=== PATIENT | female | born 1985 | race Caucasian/White ===

== ENCOUNTER 2019-03-18 08:35 | Inpatient (IN) ==
[2019-03-18] MEDS ORDERED: OXYTOCIN 30 UNITS/500 ML BAG IV PRN ×2 (09:31→17:35)
[2019-03-18] MEDS ORDERED: LACTATED RINGER'S 1,000 ML IV PRN (09:31)
[2019-03-18] MEDS ORDERED: PENICILLIN G POTASSIUM 6 MU in DEXTROSE 5% 250 ML IV STA (09:54)
[2019-03-18] MEDS ORDERED: PENICILLIN G POTASSIUM 3 MU in DEXTROSE 5% 100 ML IV PRN (10:00)
[2019-03-18 10:14] LABS: Hematocrit (blood only) 43.7 % (37-47); Hemoglobin 14.9 g/dL (12.0-16.0); Mean Corpuscular Hemoglobin 31.8 pg (25-34); Mean Corpuscular Volume 93.2 fL (80-100); Mean Platelet Volume 9.8 fL (7.4-10.4); Platelet Count 301 K/uL (130-400); RDW Standard Deviation 43.9 fL (36.4-46.3); Red Blood Count 4.69 M/uL (4.2-5.4); White Blood Count 10.81 K/uL (4.8-10.8)
[2019-03-18 10:18] LABS: Mean Corpuscular Hgb Conc 34.1 g/dL (32-36)
[2019-03-18] MEDS ORDERED: miSOPROStoL 50 MCG TAB PO SCH (12:00)
[2019-03-18] MEDS ORDERED: fentaNYL citrate 100 MCG/2 ML VIAL ONE (14:44)
[2019-03-18] MEDS ORDERED: fentaNYL 2MCG/ML ROPIV 1.25MG/ML 100 ML BAG EPI ONE (14:44)
[2019-03-18] MEDS ORDERED: ePHEDrine sulfate 50 MG/ML AMP ONE (14:44)
[2019-03-18] MEDS ORDERED: BUPIVACAINE 0.25% 30 ML VIAL ONE (14:44)
--- NOTE | 2019-03-18 15:15 | Anesthesiology Consultation ---
Date of Service March 18, 2019 Assessment & Plan (1) Encounter for pre-operative examination: Chart Review Chart Review: Acceptable Risk for Labor Epidural Consults Requested none ASA ASA2 Proposed Anesthesia Anesthesia Type: Labor Epidural Risk / Benefits Reviewed With: PT / POA / Parent / Guardian, Accepts Plan and Informed Consent Obtained History Height/Weight Height: 5 ft 8 in Weight: 75.75 kg Allergies Allergy/AdvReac Type Severity Reaction Status Date / Time prednisone Allergy Intermediate mental Verified 03/22/15 20:03 issues Sulfa (Sulfonamide Allergy Mild RASH Verified 03/22/15 20:03 Antibiotics) DECONGESTANTS Allergy Unknown rash Uncoded 12/19/14 08:41 Medications Home Medications Medication Instructions Recorded Confirmed Last Taken vit-iron fum-folic ac 1 tab PO DAILY 03/18/19 03/18/19 03/17/19 12:00 [ Vitamin] Active Medications Generic Name Dose Route Start Last Admin Trade Name Freq PRN Reason Stop Dose Admin Lactated Ringer's 1,000 mls @ 125 mls/hr 03/18/19 09:31 03/18/19 15:00 Lr IV 03/20/19 09:30 125 mls/hr .Q8H PRN Infusion L&D Protocol Protocol Penicillin G Potassium 3 mu/ 106 mls @ 100 mls/hr 03/18/19 10:00 03/18/19 15:00 Dextrose IV 03/28/19 09:59 100 mls/hr Q4H PRN Infusion until delivery Protocol Misoprostol 50 mcg 03/18/19 12:00 03/18/19 12:21 Cytotec PO 03/18/19 23:59 50 mcg ONCE MOY Administration Exercise / Class Metabolic Activity II 4-5 Yardwork/Stairs/Walk up hill Past Surgical History Surgical History (Updated 03/18/19 @ 15:15 by Abraham Alexandre DO) S/P partial thyroidectomy Past Anesthesia History No Hx of Anesthesia Complications and No Family Hx of Anesthesia Complications History of PONV No Hx of PONV and No Hx of Motion Sickness Social History Smoking Status: Never smoker Do You Dip or Chew Tobacco: No Hx Alcohol Use: No Hx Substance Use: No Physical Exam Vital Signs Last Vital Signs Temp 98.1 F 03/18/19 15:00 Pulse 68 03/18/19 15:00 Resp 18 03/18/19 15:00 BP 146/69 H 12/15/19 15:00 ENMT Mouth: no dentition abnormality Thyromental Distance: > or= 3.5 Finger Breadths Mallampati Class: II Neck normal visual inspection Respiratory normal respiratory effort Auscultation: lungs clear to auscultation bilaterally Cardiovascular Rate/Rhythm: regular rate and regular rhythm Testing Laboratory Results 03/18/19 09:55
[2019-03-18] MEDS ORDERED: NALOXONE HCL 1 MG in SODIUM CHLORIDE 0.9% 1000ML 1,000 ML IV PRN (15:37)
[2019-03-18] MEDS ORDERED: ePHEDrine sulfate 50 MG/ML AMP IV PRN (15:37)
[2019-03-18] MEDS ORDERED: ONDANSETRON INJ 2 MG/ML 2 ML VIAL IV PRN (15:37)
[2019-03-18] MEDS ORDERED: NALOXONE HCL 0.4 MG/1 ML VIAL/CARP IV PRN (15:37)
[2019-03-18] MEDS ORDERED: DiphenhydrAMINE HCL 50 MG/ML VIAL IV PRN (15:37)
[2019-03-18] MEDS ORDERED: NALBUPHINE HCL INJ 10 MG/ML AMP IV PRN (15:37)
[2019-03-18] MEDS ORDERED: fentaNYL 2MCG/ML ROPIV 1.25MG/ML 100 ML BAG EPI PRN (15:37)
[2019-03-18] MEDS ORDERED: SUPERCREAM 0.870% 15 GM JAR EXT PRN (17:35)
[2019-03-18] MEDS ORDERED: ACETAMINOPHEN W/CODEINE #3 1 TAB PO PRN (17:35)
[2019-03-18] MEDS ORDERED: BENZOCAINE 20% AER SPR 82.5 GM CAN EXT PRN (17:35)
[2019-03-18] MEDS ORDERED: OXYCODONE/ACETAMINOPHEN 5mg/325mg TAB PO PRN (17:35)
[2019-03-18] MEDS ORDERED: bisacodyL 10 MG SUPP PR PRN (17:35)
[2019-03-18] MEDS ORDERED: HYDROCORTISONE ACETATE 25 MG SUPP PR PRN (17:35)
[2019-03-18] MEDS ORDERED: DIPHTHERIA/TETANUS/PERTUSSIS 0.5 ML SYR/VIAL IM ONE (17:35)
[2019-03-18] MEDS ORDERED: ACETAMINOPHEN 325 MG TAB PO PRN (17:35)
--- NOTE | 2019-03-18 17:43 | Anesthesia Procedure Note ---
Date of Service March 18, 2019 Anesthesia Post Epidural Note Vital Signs Vital Signs: Temp Pulse Resp BP Pulse Ox 97.7 F 68 18 126/63 98 03/18/19 17:35 03/18/19 17:35 03/18/19 17:35 03/18/19 17:35 03/18/19 17:24 Pain Intensity Bilateral Abdomen: Pain Intensity: 3 Notes Mental Status: alert / awake / arousable and participated in evaluation Nausea / Vomiting: adequately controlled Pain: adequately controlled Airway Patency, RR, SpO2: stable & adequate BP & HR: stable & adequate Hydration State: stable & adequate Neuraxial Anesthesia: was administered and sensory block is resolving Anesthetic Complications: no major complications apparent and Pt Satisfied with anesthetic care Epidural: Removed without complications and With tip intact
--- NOTE | 2019-03-18 17:57 | Delivery Summary ---
DATE OF OPERATION: 03/18/2019 This is a dictation of a spontaneous vaginal delivery. The patient is a 2, para 2, blood type is O positive. She was admitted at 36 weeks and 1 day with sara rupture of membranes. Nitrazine positive. She was not having any contractions. She was given 1 dose of Cytotec 50 mcg and she went into labor. She eventually had an epidural anesthesia when she was about 6 cm. She went to full dilatation, delivered a live infant via direct occiput anterior position over an intact perineum. Cut a small episiotomy prior to delivery, delivered the head, suctioned the infant through the mouth and the nose and delivered the body. Cord was clamped, cut by the father. Cord blood was taken. With IV Pitocin running, the placenta was removed intact. There was noted to be a midline clitoral laceration, which was bleeding, a lot of venous bleeding. We used 3 interrupted 3-0 chromic gut sutures to approximate the edges and control the bleeding. Then, there was a first-degree laceration of the perineum and this was repaired by approximating the vaginal mucosa beyond the hymenal ring doing a deep bulbocavernosus suture to bring the bulbocavernosus bodies together and then doing a running subcuticular sutures to approximate the perineal skin edges. Following this, hemostasis was good. Estimated blood loss was 200 mL. Apgars deferred to the nurses. The patient tolerated the procedure well. I attest to the content of the Intraoperative Record and any orders documented therein. Any exception s are noted below.
[2019-03-18] MEDS: DOCUSATE SODIUM 100 MG CAP PO SCH (21:25)
[2019-03-18] MEDS: IBUPROFEN 600 MG TAB PO PRN (23:26)
[2019-03-19 07:01] LABS: Hematocrit (blood only) 38.9 % (37-47); Hemoglobin 13.1 g/dL (12.0-16.0); Mean Corpuscular Hemoglobin 31.6 pg (25-34); Mean Corpuscular Hgb Conc 33.7 g/dL (32-36); Mean Corpuscular Volume 93.7 fL (80-100); Platelet Count 271 K/uL (130-400); RDW Standard Deviation 44.3 fL (36.4-46.3); Red Blood Count 4.15 M/uL (4.2-5.4)
[2019-03-19] MEDS: DOCUSATE SODIUM 100 MG CAP PO SCH ×2 (08:00→19:46)
[2019-03-19] MEDS: FERROUS SULFATE 325 MG TAB PO SCH (08:00)
[2019-03-19] MEDS: PRENATAL VITAMIN 1 TAB PO SCH (08:00)
[2019-03-19] MEDS: IBUPROFEN 600 MG TAB PO PRN ×2 (08:00→20:47)
--- NOTE | 2019-03-19 10:22 | Obstetrical Progress Note ---
Date of Service March 19, 2019 Assessment & Plan (1) abnormal glucose tolerance of mother: PPD #1 pt doing well anticipant disc tomorrow Subjective Ambulation: ambulating normally Voiding: no voiding problems Passing Gas:: Yes Diet Tolerance:: regular diet Lochia:: Small Feeding Type:: breast feeding Review of Systems All systems reviewed & are unremarkable except as noted in HPI & below Physical Exam Constitutional WD/WN, vitals as above well developed and well nourished Eyes PERRL, conjunctivae normal, anicteric sclerae Neck trachea midline, no thyromegaly Respiratory normal respiratory effort, lungs clear to auscultation Auscultation: no crackles, no rales and no wheezes Cardiovascular RRR, no murmur, no edema Gastrointestinal (Abdomen) normal bowel sounds, soft, nontender, no hepatosplenomegaly Uterus is below umbilicus Musculoskeletal no cyanosis or clubbing, extremities motor strength 5/5 Skin no rashes, warm and dry Neurologic patellar DTR's 2+ bilat, sensation intact Psychiatric A+Ox3, euthymic affect Genitourinary normal external appearance Results & Data Vital Signs (Past 12 Hours) Vital Signs Temp Pulse Resp BP 03/19/19 03:00 36.6 C 68 18 109/67 03/18/19 23:10 36.6 C 73 18 108/69
[2019-03-19] MEDS ORDERED: bisacodyL 5 MG TABEC PO SCH (20:00)
[2019-03-20 06:30] LABS: Hematocrit (blood only) 38.6 % (37-47)
[2019-03-20] MEDS: FERROUS SULFATE 325 MG TAB PO SCH (09:00)
[2019-03-20] MEDS: PRENATAL VITAMIN 1 TAB PO SCH (09:01)
[2019-03-20] MEDS: DOCUSATE SODIUM 100 MG CAP PO SCH (09:01)
--- NOTE | 2019-03-20 11:03 | Obstetrical Progress Note ---
Date of Service March 20, 2019 Subjective doing well plans for discharge passing gas tolerating diet Physical Exam Constitutional: WD/WN, vitals as above comfortable abdomen soft and non- tender neg Radha's neg edema for discharge Results & Data Vital Signs (Past 12 Hours) Vital Signs Temp Pulse Resp BP Pulse Ox 03/20/19 07:58 36.3 C L 74 20 112/72 97 03/20/19 00:00 36.6 C 71 18 107/70 Laboratory Results Laboratory Results - last 72 hr 03/18/19 03/19/19 03/20/19 09:55 06:17 06:10 WBC 10.81 H 9.80 RBC 4.69 4.15 L Hgb 14.9 13.1 13.0 Hct 43.7 38.9 38.6 MCV 93.2 93.7 MCH 31.8 31.6 MCHC 34.1 33.7 RDW Std Deviation 43.9 44.3 RDW Coeff of Pb 13.0 13.0 Plt Count 301 271 MPV 9.8 10.0
== END 2019-03-20 17:01 | disposition home or self-care (01) | DRG 807 ==
LOC: OPB 08:35 → 4S1 08:39 → 4S2 20:48

== ENCOUNTER 2019-04-06 12:12 | Inpatient (IN) ==
--- OUTSIDE RECORDS SUMMARY | 2019-04-06 12:15 | External Medical Summary | Continuity of Care Document ---
:1985 Author Name Jessica Poe Address Unavailable Unavailable , Care Team Providers Name Role Phone Unavailable Unavailable Unavailable Steffanie Luna [email or web address] Unavailable Unavailable Unavailable Unavailable Unavailable Problems Encounter for visit (V24.2) (Z39.2) Thyroid disorder (246.9) (E07.9) Palpitations (785.1) (R00.2) Changing nevus (216.9) (D22.9) Acquired deviated nasal septum (470) (J34.2) Prolonged , antepartum condition or complication (6 45.23) (O48.1) Encounter for supervision of normal firs t in third trimester (V22.0) (Z34.03) Hypertrophy of nasal turbinates (478.0) (J34.3) Carrier of group B Streptococcus (V02.51) (Z22.330) Mastitis (611.0) (N61.0) Mastodynia (611.71) (N64.4) Allergies and Adverse Reactions Ginger-D TB12 (Allergy) Azithromycin TABS (Allergy) Decongestabs TBCR (Allergy) PredniSONE (Curt) TABS (Allergy) Sulfa Drugs (Allergy) Reaction: Itching Medications Vitamins Lui FLORES Refills: 0 Dicloxacillin Sodium 500 MG Oral Capsule; TAKE 1 CAPSU LE 4 TIMES DAILY. Lui Luna Start: 24-May-2016 Quantity: 40 Refills: 0 Procedures History of Thyroid Surgery Sub-Total Thyroidectomy Status: Completed History of Oral Surgery Tooth Extraction Status: Completed Immunizations Tdap (Adacel) On: 02-Jan-2015 16:49 Lot #: [id number], SANOFI PASTEUR Family History Unknown Family Member Family history of Colon Cancer (V16.0) Status: Active C omments: Family History Mother Family history of colitis (V18.59) (Z83.79) Status: Active Social History - Smoking Status Never smoker Plan of Treatment Planned Observations Planned Goals not documented Results No Known Results Results not documented
--- OUTSIDE RECORDS SUMMARY | 2019-04-06 12:15 | External Medical Summary | Continuity of Care Document ---
:1985 Author Name Jessica Poe Address Unavailable Unavailable , Care Team Providers Name Role Phone Unavailable Unavailable Unavailable Steffanie [email or web address] [email or web address] BOB Unavailable Unavailable Unavailable Unavailable Unavailable Problems Acquired deviated nasal septum (470) (J34.2) Hypertrophy of nasal turbinates (478.0) (J34.3) Changing nevus (216.9) (D22.9) Palpitations (785.1) (R00.2) Thyroid disorder (246.9) (E07.9) Encounter for supervision of normal firs t in third trimester (V22.0) (Z34.03) Prolonged , antepartum condition or complication (6 45.23) (O48.1) Encounter for visit (V24.2) (Z39.2) Mastodynia (611.71) (N64.4) Mastitis (611.0) (N61.0) Carrier of group B Streptococcus (V02.51) (Z22.330) Allergies and Adverse Reactions Ginger-D TB12 (Allergy) [...] Tdap (Adacel) On: 02-Jan-2015 16:49 Lot #: [id number], SANOFI PASTEUR Family History Unknown Family Member Family history of Colon Cancer (V16.0) Status: Active C omments: Family History Mother Family history of colitis (V18.59) (Z83.79) Status: Active Social History - Smoking Status Never smoker Plan of Treatment Planned Observations Planned Goals not documented Results No Known Results Results not documented
[2019-04-06] MEDS ORDERED: SODIUM CHLORIDE 0.9% 1000ML 2,000 ML IV SCH (13:15)
--- NOTE | 2019-04-06 13:17 | XRay Report ---
XR chest 1V portable CLINICAL HISTORY: cough, fever COMPARISON STUDY: Chest radiograph December 27, 2011. FINDINGS: Lung volumes are normal. There is no pneumothorax or pleural effusion. There is moderate ri ght mid and lower lung airspace opacity. Left lung is clear. Cardiac size is normal. Mediastinal cont ours are unremarkable. Patient is mildly rotated. IMPRESSION: Moderate right lower and midlung airspace opacity suggestive of pneumonia. Post treatmen t radiographs to ensure resolution are recommended. ACT 112: Negative or not required by law. Electronically signed by: Yvan Whitlock M.D. 04/06/2019 1:16 PM
[2019-04-06 13:52] LABS: Basophils # (auto) 0.02 K/uL (0-0.2); Basophils % (auto) 0.4 %; Eosinophils # (auto) 0.03 K/uL (0-0.5); Eosinophils % (auto) 0.5 %; Hematocrit (blood only) 41.5 % (37-47); Hemoglobin 14.1 g/dL (12.0-16.0); Immature Granulocytes # (auto) 0.02 K/uL (0.00-0.02); Immature Granulocytes % (auto) 0.4 %; Lymphocytes # (auto) 1.32 K/uL (1.2-3.4); Lymphocytes % (auto) 23.2 %; Mean Corpuscular Hemoglobin 31.8 pg (25-34); Mean Corpuscular Volume 93.7 fL (80-100); Mean Platelet Volume 9.3 fL (7.4-10.4); Monocytes # (auto) 0.46 K/uL (0.11-0.59); Monocytes % (auto) 8.1 %; Neutrophils # (auto) 3.84 K/uL (1.4-6.5); Neutrophils % (auto) 67.4 %; Platelet Count 316 K/uL (130-400); RDW Coefficient of Variation 12.8 % (11.5-14.5); RDW Standard Deviation 44.4 fL (36.4-46.3); Red Blood Count 4.43 M/uL (4.2-5.4); White Blood Count 5.69 K/uL (4.8-10.8)
[2019-04-06 14:02] LABS: Partial Thromboplastin Ratio 1.2; Partial Thromboplastin Time 33.3 Seconds (21.0-31.0); Prothrombin Time 9.9 Seconds (9.0-12.0)
[2019-04-06 14:03] LABS: Appearance Urine Clear (Clear); Bacteria Urine Automated Negative (Negative); Bilirubin Urine Negative (Negative); Blood Urine 3+ (Negative); Color Urine Dark Yellow; Epithelial Cell Urine Auto >30 /lpf (0-5); Glucose Urine UA Negative (Negative); Ketones Urine Negative (Negative); Leukocyte Esterase Urine 2+ (Negative); Nitrite Urine Negative (Negative); Specific Gravity Urine 1.014 (1.000-1.030); Urobilinogen Urine Negative (Negative); pH Urine 7.5 (4.5-7.5)
[2019-04-06 14:08] LABS: Protein Urine Negative (Negative); Sulfosalicylic Acid Urine Negative (Negative)
[2019-04-06 14:17] LABS: Alanine Aminotransferase 30 U/L (12-78); Aspartate Aminotransferase 19 U/L (15-37); BUN Creatinine Ratio 9.7 (10-20); Blood Urea Nitrogen 6 mg/dl (7-18); Calcium 8.8 mg/dl (8.5-10.1); Carbon Dioxide 28 mmol/L (21-32); Chloride 107 mmol/L (98-107); Creatinine Clr Calc Pharmacy 129.3 ml/min; Est GFR (African American) 137.6; Est GFR (Non-African American) 118.7; Glucose 81 mg/dl (70-99); Potassium 3.2 mmol/L (3.5-5.1); Sodium 139 mmol/L (136-145)
[2019-04-06] MEDS ORDERED: cefTRIAXone SODIUM 1,000 MG/50 ML BAG IV STA (14:17)
[2019-04-06 14:21] LABS: RBC Urine Automated >30 /hpf (0-4)
[2019-04-06 14:21] LABS: Albumin Globulin Ratio 0.7 (0.9-2); Alkaline Phosphatase 109 U/L (45-117); Bilirubin,Total 0.4 mg/dl (0.2-1); Globulin 4.4 gm/dl (2.5-4.0); Total Protein 7.4 gm/dl (6.4-8.2); Troponin I < 0.015 ng/ml (0-0.045)
[2019-04-06] MEDS ORDERED: DOXYCYCLINE HYCLATE 100 MG CAP PO STA (15:54)
--- NOTE | 2019-04-06 16:12 | Emergency Department Note ---
History of Present Illness General Chief Complaint: Fever Stated Complaint: FEVER - UPPER RESP - SENT TO ER Source: patient Mode of arrival: ambulatory Limitations: no limitations History of Present Illness Provider Complaint: shortness of breath and cough Onset (ago): day(s) (6) Severity: moderate Consistency/Duration: + constant and + progressively worsening Maximum Pain Intensity: 4 Current Pain Intensity: 4 Relieved By: + nothing Exacerbated By: + lying flat, + exertion and + coughing Associated symptoms: + fever and + sputum production Treatment prior to arrival: other (Keflex) This 33-year-old female patient presents emergency department today, ambulatory, calmly by her family. The patient is just shy of 3 weeks from a natural vaginal delivery without complications. The delivery was approximately 1 month early. The patient states she developed fever and cough 6 days ago. Symptoms have been progressing and she then developed redness of her right breast. She contacted [facility] and was told she has flulike symptoms and started on antibiotics for mastitis on Tuesday. She has been taking Keflex for the past 3 days without any improvement in her symptoms. This morning, she awoke with a fever of 102 F. She was diaphoretic and continued to cough. She denies any hemoptysis. She denies any abdominal pain, chest pain, abnormal vaginal discharge or bleeding, headaches, dizziness, nausea, vomiting, or other concerning symptoms. Home Medications Home Medications Medication Instructions Recorded Confirmed Type Vitamin 1 tab PO DAILY 03/18/19 04/06/19 History acetaminophen 1,000 mg PO Q6H PRN 04/06/19 04/06/19 History cephalexin 500 mg PO TID 04/06/19 04/06/19 History Allergies Allergy/AdvReac Type Severity Reaction Status Date / Time prednisone Allergy Intermediate mental Verified 04/06/19 13:12 issues fexofenadine [From Ginger-D] Allergy Mild Rash Verified 04/06/19 13:12 pseudoephedrine Allergy Mild Rash Verified 04/06/19 13:12 [From Ginger-D] Sulfa (Sulfonamide Allergy Mild RASH Verified 04/06/19 13:12 Antibiotics) Past Med/Surg History Medical History No pertinent past medical history Surgical History S/P partial thyroidectomy Social History Preferred Language: Yoruba Communication Ability: Effective Gun Club Manager Required: No Beliefs That Will Affect Care: None marital status: Current Living Situation: Spouse and Family Current Living Situation Comment: & almost 4 yr old daughter Other Information That Helps Us Care for You: No Feels Safe at Home: Yes Safety Concerns: Feels Safe At This Time Smoking Status: Never smoker Do You Dip or Chew Tobacco: No ; Second Hand Exposure: No ; Tobacco Cessation Education Requested by Patient: No Hx Alcohol Use: No Hx Substance Use: No Review of Systems A total of 10 systems reviewed and were otherwise negative Physical Exam Vital Signs: Vital Signs - 24 hr 04/06/19 12:15 04/06/19 13:55 04/06/19 15:01 Temperature 37.7 C H Temperature Source Oral Pulse Rate 112 H Pulse Rate [Left] 105 H 92 H Pulse Rhythm [Left ] Regular Regular Respiratory Rate 16 24 27 H Respiratory Effort / Characteristics Non-Labored Non-Labored Non-Labored Respiratory Depth Normal Normal Normal Respiratory Patter n Regular Regular Blood Pressure 145/77 H Blood Pressure [Ri ght Arm] 106/75 144/83 H Blood Pressure [place] n 99 Blood Pressure [place] n [Right Arm] 85 103 Pulse Oximetry 94 93 95 Oxygen Delivery Me thod Room Air Room Air Room Air Sepsis Recent Feve r Within 48 Hours Yes Sepsis New/Unexpla ined Change in Men yana Status No Sepsis Action Take n by Nursing No Action Required 04/06/19 16:07 Temperature Temperature Source Pulse Rate Pulse Rate [Left] 97 H Pulse Rhythm [Left ] Regular Respiratory Rate 17 Respiratory Effort / Characteristics Non-Labored Respiratory Depth Normal Respiratory Patter n Regular Blood Pressure Blood Pressure [Ri ght Arm] 102/76 Blood Pressure [place] n Blood Pressure [place] n [Right Arm] 84 Pulse Oximetry 95 Oxygen Delivery Me thod Room Air Sepsis Recent Feve r Within 48 Hours Sepsis New/Unexpla ined Change in Men yana Status Sepsis Action Take n by Nursing Physical Exam: VITALS: Vitals are noted on the nurse's note and reviewed by myself. Vital signs stable. GENERAL: This is a 33-year-old white female, in no acute distress, nondiaphoretic, well-developed well-nourished. SKIN: The skin was without rashes, erythema, edema, or bruising. There is no tenting of the skin. Capillary refill less than 2 seconds. HEAD: Normocephalic atraumatic. EARS: External auditory canals clear, tympanic membranes pearly lozoya without erythema or effusion bilaterally. EYES: Pupils equal round and reactive to light and accommodation. Conjunctivae without injection, sclerae without icterus. NOSE: Patent, turbinates without inflammation or discharge. No sinus tendernes s. MOUTH: Mucous membranes moist. Tonsils are not enlarged. Pharynx without erythema or exudate. Uvula midline. Airway patent. Tongue does not deviate. NECK: Supple without nuchal rigidity. No lymphadenopathy. HEART: Regular rate and rhythm without murmurs gallops or rubs. LUNGS: Right lower lobe rhonchi to auscultation. Lungs are otherwise clear to auscultation bilaterally without wheezes or rales. No retractions or accessory muscle use. ABDOMEN: Positive bowel sounds x 4. Normal tympanic percussion. Soft, nontender, without masses or organomegaly. Caballero sign negative. No guarding or rebound tenderness. MUSCULOSKELETAL: No muscle atrophy, erythema, or edema noted. Full range of motion without joint tenderness in all extremities. No tenderness to palpation. Normal gait. Strength 5/5 throughout. NEURO: Patient was alert and oriented to person place and time. No focal neurological deficits. Course The patient was seen and evaluated as above. IV access obtained, labs drawn. Patient medicated with 2 L IV fluids. Imaging performed and reviewed by myself and radiologist as above. Labs reviewed by myself. I discussed the findings with the patient at bedside. I did recommend admission. The patient indicates that she is currently breast-feeding and is uncertain whether or not she would like to stay. I discussed the case with the ED pharmacist, Allan. We had a conversation regarding most appropriate antibiotics given the mother breast-feeding. He recommended ceftriaxone and azithromycin or doxycycline. I provided the patient with studies and information regarding both the azithromycin and doxycycline and potential adverse effects while breast-feeding, the patient ultimately decided she would accept the doxycycline. After several conversations with me and the patient at bedside, the patient's , and their family members, the patient ultimately did agree to stay in the hospital for inpatient management of her pneumonia. She did ask if the baby could stay with her, and the clay house worker advised that she may stay, but someone else must stay to be responsible for the baby. I discussed the case with RADHA Albright with [facility] hospitalist service. She did agree to see and evaluate the patient. Please see hospitalist dictation regarding ongoing management care of this patient. Administered Medications Discontinued Medications Doxycycline Hyclate (Vibramycin) 100 mg PO NOW STA Stop: 04/06/19 15:55 Last Admin: 04/06/19 16:18 Dose: 100 mg Documented by: [id number] Sodium Chloride (Nss 1000ml) 2,000 mls @ 999 mls/hr IV .Q2H1M MOY Stop: 04/06/19 15:15 Last Infusion: 04/06/19 15:26 Dose: 0 mls/hr Documented by: [id number] Admin: 04/06/19 13:52 Dose: 999 mls/hr Documented by: [id number] Ceftriaxone Sodium (Rocephin) 1,000 mg in 50 mls @ 100 mls/hr IV NOW STA Stop: 04/06/19 14:46 Last Infusion: 04/06/19 15:26 Dose: 0 mls/hr Documented by: [id number] Admin: 04/06/19 15:00 Dose: 100 mls/hr Documented by: [id number] Medical Decision Making Differential Diagnosis + acute exacerbation of chronic obstructive airways disease, + congestive heart failure, + community acquired pneumonia, + asthma with exacerbation, + pulmonary embolism, + COPD, + bronchitis, + pneumothorax, + pneumonia, + pleural effusion, + CHF, + ACS and + aspiration In addition to the above, etiologies such as viral syndrome, otitis, pharyngitis, urinary tract infection, sepsis, bacteremia, meningitis, as well as others were entertained. Home Medications Current Medication List: was personally reviewed by me Laboratory Data Attestation: I reviewed the patient's lab results. No leukocytosis, anemia, thrombocytopenia. Renal, hepatic function, and electrolytes without significant abnormality. Troponin negative. Procalcitonin normal. Mild hypokalemia 3.2 Result diagrams: 04/06/19 13:32 04/06/19 13:32 Lab Results 04/06/19 04/06/19 04/06/19 Range/Units 13:09 13:32 13:32 WBC 5.69 (4.8-10.8) K/uL RBC 4.43 (4.2-5.4) M/uL Hgb 14.1 (12.0-16.0) g/dL Hct 41.5 (37-47) % MCV 93.7 (80-100) fL MCH 31.8 (25-34) pg MCHC 34.0 (32-36) g/dL RDW Std Deviation 44.4 (36.4-46.3) fL RDW Coeff of Pb 12.8 (11.5-14.5) % Plt Count 316 (130-400) K/uL MPV 9.3 (7.4-10.4) fL Immature Gran % (Auto) 0.4 % Neut % (Auto) 67.4 % Lymph % (Auto) 23.2 % Ector % (Auto) 8.1 % Eos % (Auto) 0.5 % Baso % (Auto) 0.4 % Immature Gran # (Auto) 0.02 (0.00-0.02) K/uL Neut # (Auto) 3.84 (1.4-6.5) K/uL Lymph # (Auto) 1.32 (1.2-3.4) K/uL [place] # (Auto) 0.46 (0.11-0.59) K/uL Eos # (Auto) 0.03 (0-0.5) K/uL Baso # (Auto) 0.02 (0-0.2) K/uL PT (9.0-12.0) Seconds INR (0.9-1.1) APTT (21.0-31.0) Seconds PTT Ratio Sodium 139 (136-145) mmol/L Potassium 3.2 L (3.5-5.1) mmol/L Chloride 107 (98-107) mmol/L Carbon Dioxide 28 (21-32) mmol/L Anion Gap 4.0 (3-11) BUN 6 L (7-18) mg/dl Creatinine 0.63 (0.6-1.2) mg/dl Est Cr Clr Drug Dosing 129.3 ml/min Est GFR ( Amer) 137.6 Est GFR (Non-Af Amer) 118.7 BUN/Creatinine Ratio 9.7 L (10-20) Glucose 81 (70-99) mg/dl Lactate (0.4-2.0) mmol/L Calcium 8.8 (8.5-10.1) mg/dl Total Bilirubin 0.4 (0.2-1) mg/dl AST 19 (15-37) U/L ALT 30 (12-78) U/L Alkaline Phosphatase 109 (45-117) U/L Troponin I < 0.015 (0-0.045) ng/ml Total Protein 7.4 (6.4-8.2) gm/dl Albumin 3.0 L (3.4-5.0) gm/dl Globulin 4.4 H (2.5-4.0) gm/dl Albumin/Globulin Ratio 0.7 L (0.9-2) Procalcitonin (0-0.5) ng/ml Urine Color Urine Appearance (Clear) Urine pH (4.5-7.5) Ur Specific [place] (1.000-1.030) Urine Protein (Negative) Urine Glucose (UA) (Negative) Urine Ketones (Negative) Urine Blood (Negative) Urine Nitrite (Negative) Urine Bilirubin (Negative) Urine Urobilinogen (Negative) Ur Leukocyte Esterase (Negative) Urine WBC (Auto) (0-5) /hpf Urine RBC (Auto) (0-4) /hpf U Hyaline Cast (Auto) (0-5) /lpf U Epithel Cells (Auto) (0-5) /lpf Urine Bacteria (Auto) (Negative) Urine Yeast Influenza Type A Ag Neg for Influ A (Neg) Influenza Type B Ag Neg for Influ B (Neg) 04/06/19 04/06/19 04/06/19 Range/Units 13:32 13:32 13:32 WBC (4.8-10.8) K/uL RBC (4.2-5.4) M/uL Hgb (12.0-16.0) g/dL Hct (37-47) % MCV (80-100) fL MCH (25-34) pg MCHC (32-36) g/dL RDW Std Deviation (36.4-46.3) fL RDW Coeff of Pb (11.5-14.5) % Plt Count (130-400) K/uL MPV (7.4-10.4) fL Immature Gran % (Auto) % Neut % (Auto) % Lymph % (Auto) % [place] % (Auto) % Eos % (Auto) % Baso % (Auto) % Immature Gran # (Auto) (0.00-0.02) K/uL Neut # (Auto) (1.4-6.5) K/uL Lymph # (Auto) (1.2-3.4) K/uL Ector # (Auto) (0.11-0.59) K/uL Eos # (Auto) (0-0.5) K/uL Baso # (Auto) (0-0.2) K/uL PT 9.9 (9.0-12.0) Seconds INR 1.0 (0.9-1.1) APTT 33.3 H (21.0-31.0) Seconds PTT Ratio 1.2 Sodium (136-145) mmol/L Potassium (3.5-5.1) mmol/L Chloride (98-107) mmol/L Carbon Dioxide (21-32) mmol/L Anion Gap (3-11) BUN (7-18) mg/dl Creatinine (0.6-1.2) mg/dl Est Cr Clr Drug Dosing ml/min Est GFR ( Amer) Est GFR (Non-Af Amer) BUN/Creatinine Ratio (10-20) Glucose (70-99) mg/dl Lactate 1.2 (0.4-2.0) mmol/L Calcium (8.5-10.1) mg/dl Total Bilirubin (0.2-1) mg/dl AST (15-37) U/L ALT (12-78) U/L Alkaline Phosphatase (45-117) U/L Troponin I (0-0.045) ng/ml Total Protein (6.4-8.2) gm/dl Albumin (3.4-5.0) gm/dl Globulin (2.5-4.0) gm/dl Albumin/Globulin Ratio (0.9-2) Procalcitonin 0.24 (0-0.5) ng/ml Urine Color Urine Appearance (Clear) Urine pH (4.5-7.5) Ur Specific [place] (1.000-1.030) Urine Protein (Negative) Urine Glucose (UA) (Negative) Urine Ketones (Negative) Urine Blood (Negative) Urine Nitrite (Negative) Urine Bilirubin (Negative) Urine Urobilinogen (Negative) Ur Leukocyte Esterase (Negative) Urine WBC (Auto) (0-5) /hpf Urine RBC (Auto) (0-4) /hpf U Hyaline Cast (Auto) (0-5) /lpf U Epithel Cells (Auto) (0-5) /lpf Urine Bacteria (Auto) (Negative) Urine Yeast Influenza Type A Ag (Neg) Influenza Type B Ag (Neg) 04/06/19 Range/Units 13:44 WBC (4.8-10.8) K/uL RBC (4.2-5.4) M/uL Hgb (12.0-16.0) g/dL Hct (37-47) % MCV (80-100) fL MCH (25-34) pg MCHC (32-36) g/dL RDW Std Deviation (36.4-46.3) fL RDW Coeff of Pb (11.5-14.5) % Plt Count (130-400) K/uL MPV (7.4-10.4) fL Immature Gran % (Auto) % Neut % (Auto) % Lymph % (Auto) % E[place] % (Auto) % Eos % (Auto) % Baso % (Auto) % Immature Gran # (Auto) (0.00-0.02) K/uL Neut # (Auto) (1.4-6.5) K/uL Lymph # (Auto) (1.2-3.4) K/uL Ector # (Auto) (0.11-0.59) K/uL Eos # (Auto) (0-0.5) K/uL Baso # (Auto) (0-0.2) K/uL PT (9.0-12.0) Seconds INR (0.9-1.1) APTT (21.0-31.0) Seconds PTT Ratio Sodium (136-145) mmol/L Potassium (3.5-5.1) mmol/L Chloride (98-107) mmol/L Carbon Dioxide (21-32) mmol/L Anion Gap (3-11) BUN (7-18) mg/dl Creatinine (0.6-1.2) mg/dl Est Cr Clr Drug Dosing ml/min Est GFR ( Amer) Est GFR (Non-Af Amer) BUN/Creatinine Ratio (10-20) Glucose (70-99) mg/dl Lactate (0.4-2.0) mmol/L Calcium (8.5-10.1) mg/dl Total Bilirubin (0.2-1) mg/dl AST (15-37) U/L ALT (12-78) U/L Alkaline Phosphatase (45-117) U/L Troponin I (0-0.045) ng/ml Total Protein (6.4-8.2) gm/dl Albumin (3.4-5.0) gm/dl Globulin (2.5-4.0) gm/dl Albumin/Globulin Ratio (0.9-2) Procalcitonin (0-0.5) ng/ml Urine Color Dark Yellow Urine Appearance Clear (Clear) Urine pH 7.5 (4.5-7.5) Ur Specific [place] 1.014 (1.000-1.030) Urine Protein Negative (Negative) Urine Glucose (UA) Negative (Negative) Urine Ketones Negative (Negative) Urine Blood 3+ H (Negative) Urine Nitrite Negative (Negative) Urine Bilirubin Negative (Negative) Urine Urobilinogen Negative (Negative) Ur Leukocyte Esterase 2+ H (Negative) Urine WBC (Auto) 5-10 H (0-5) /hpf Urine RBC (Auto) >30 H (0-4) /hpf U Hyaline Cast (Auto) 1-5 (0-5) /lpf U Epithel Cells (Auto) >30 H (0-5) /lpf Urine Bacteria (Auto) Negative (Negative) Urine Yeast Not Reportable Influenza Type A Ag (Neg) Influenza Type B Ag (Neg) Imaging Data Radiologist's Impression: XR chest 1V portable CLINICAL HISTORY: cough, fever COMPARISON STUDY: Chest radiograph December 27, 2011. FINDINGS: Lung volumes are normal. There is no pneumothorax or pleural effusion. There is moderate right mid and lower lung airspace opacity. Left lung is clear. Cardiac size is normal. Mediastinal contours are unremarkable. Patient is mildly rotated. IMPRESSION: Moderate right lower and midlung airspace opacity suggestive of pneumonia. Post treatment radiographs to ensure resolution are recommended. ACT 112: Negative or not required by law. Electronically signed by: Yvan Whitlock M.D. 04/06/2019 1:16 PM Blood Pressure Blood Pressure Findings: Normal blood pressure MDM Narrative This 33-year-old female patient presents emergency department today for evaluation of fever and cough. She was started on Keflex earlier this week due to mastitis, but continues to have progressively worsening fevers and productive cough. On examination, the patient is tachycardic, febrile, and appears uncomfortable. She was medicated initially with 2 L of IV fluids, which did seem to help with her symptoms. The patient's lab work-up was unrevealing with the exception of a very mild hypokalemia. Her chest x-ray does show consolidation in the right mid and lower lobes, concerning for a multifocal pneumonia. I did recommend inpatient management for IV antibiotics. Because t he patient has children at home and is currently breast-feeding, she was initially resistant to this plan, but ultimately did agree to stay. The patient was started on IV Rocephin and after discussion with the ED pharmacist, we did elect to start the patient on doxycycline versus azithromycin. The patient did decide she would prefer the doxycycline. The patient will be admitted to the hospitalist service for further management of her pneumonia. Please see hospitalist dictation regarding ongoing management care of this patient. Patient was placed on continuous cardiac monitoring. Heart rate appears to be a sinus rhythm in the 90s to low 100s. The chart was completed utilizing [employer] Speech voice recognition software. Grammatical errors, random word insertions, pronoun errors, and incomplete sentences are an occasional consequence of this system due to software limitations, ambient noise, and hardware issues. Any formal questions or concerns about the content, text, or information contained within the body of this dictation should be directly addressed to the provider for clarification. Impression & Plan Multifocal pneumonia, Tachycardia, Fever Discharge Plan Visit Data Chief Complaint: Fever Stated Complaint: FEVER - UPPER RESP - SENT TO ER ED Provider: Austin Wilkinson ED Midlevel Provider: Michelle Alexandre Discharge Problem: Multifocal pneumonia, Tachycardia, Fever Patient Disposition: Admitted As Inpatient Condition: Good Forms Stand Alone Forms: My [facility] [employer] Prescriptions Prescriptions: No Action Vitamin 27 mg iron- 0.8 mg Tablet 1 tab PO DAILY RF: 0 acetaminophen 500 mg Tablet 1,000 mg PO Q6H PRN (Reason: Pain/Fever) RF: 0 cephalexin 500 mg capsule 500 mg PO TID RF: 0 Referrals Referrals: Michelle Kingston, [Primary Care Provider] -
--- NOTE | 2019-04-06 16:40 | History & Physical Report ---
Date of Service April 06, 2019 Assessment & Plan (1) Multifocal pneumonia: Pt is 33 y/o F with PMH s/p vaginal delivery 03/18/19 presented to ER with c/o cough x 1 week. Reports 3 days ago fever 103F. In ER T: 37.7, P: 112, R: 16, BP: 145/77, 94% on RA. WBC: 5.6. Lactate: 1.2. Negative influenza swab -Blood cultures pending -In ER given Rocephin, doxycycline, 2L NSS -Discussed meds and med side effects and breast feeding with pt. Medications also discussed with pharmacist -Rocephin, Doxycycline -IVF -CBC, BMP in am (2) Mastitis: Started Keflex on 04/03/19 for right sided mastitis. Continues to breast feed with resolution of breast erythema, tenderness and firmness -Hold keflex currently as is on Rocephin as above DVT Prophylaxis -Low risk - Ambulate Follows with Dr Kingston for routine care Pt was seen and care coordinated with Dr Patel. See addendum History of Present Illness Chief Complaint: Cough Primary Care Provider: Michelle Kingston, Pt is 33 y/o F with PMH s/p vaginal delivery 03/18/19 presented to ER with c/o cough x 1 week. Patient complains of cough, intermittently feels like is productive however, bringing up any sputum. Reports 3 days ago fever 103F. Had noted right breast erythema and firmness and was diagnosed with right breast mastitis and was started on Keflex 500 mg 3 times daily x7 days. Patient has continued to breast-feed and reports right breast redness and firmness has resolved. Cough has continued and fever has continued with fever of 102F today. States had some nasal congestion. Reports intermittent nausea. Denies V/D/C, MENDIOLA, dizziness, syncope, vision changes, neck pain, CP, SOB, orthopnea, palpitations, hemoptysis, sore throat, choking, otalgia, abdominal pain, paresthesias, weakness, extremity weakness, extremity edema, rashes, urinary symptoms. Allergies Allergy/AdvReac Type Severity Reaction Status Date / Time prednisone Allergy Intermediate mental Verified 04/06/19 13:12 issues fexofenadine [From Ginger-D] Allergy Mild Rash Verified 04/06/19 13:12 pseudoephedrine Allergy Mild Rash Verified 04/06/19 13:12 [From Ginger-Johan] Sulfa (Sulfonamide Allergy Mild RASH Verified 04/06/19 13:12 Antibiotics) Home Medications Home Medications Medication Instructions Recorded Confirmed Type Vitamin 1 tab PO DAILY 03/18/19 04/06/19 History acetaminophen 1,000 mg PO Q6H PRN 04/06/19 04/06/19 History cephalexin 500 mg PO TID 04/06/19 04/06/19 History Past Med/Surg History Medical History History of thyroid nodule Surgical History S/P partial thyroidectomy Family History Other Diabetes Hypertension Social History Preferred Language: Amharic Communication Ability: Effective Metaphysicist Required: No Beliefs That Will Affect Care: None marital status: Current Living Situation: Spouse and Family Current Living Situation Comment: & almost 4 yr old daughter Other Information That Helps Us Care for You: No Feels Safe at Home: Yes Safety Concerns: Feels Safe At This Time Smoking Status: Never smoker Do You Dip or Chew Tobacco: No ; Second Hand Exposure: No ; Tobacco Cessation Education Requested by Patient: No Hx Alcohol Use: No Hx Substance Use: No Review of Systems Review of Systems: All systems reviewed & are unremarkable except as noted in HPI & below Physical Exam Physical Exam: General: no distress, WDWN Head: normocephalic, atraumatic Eyes: PERRL, EOM's intact, conjunctiva non-injected, anicteric ENT: normal inspection external ears, nose, mucous membranes mildly dry Neck: supple, trachea midline, non-tender Breasts: no erythema, non-tender Lungs: no respiratory distress, right lower lung with rales CV: RRR, no murmur, no pretibial edema Abd: normal BS, soft, non-tender Ext: no cyanosis, no calf tenderness, no erythema Neuro: A&O x 3, no focal deficits noted, normal affect Skin: warm, dry Results & Data Vital Signs (Past 12 Hours) Vital Signs Temp Pulse Pulse Resp BP BP Pulse Ox 04/06/19 16:07 97 H 17 102/76 95 04/06/19 15:01 92 H 27 H 144/83 H 95 04/06/19 13:55 105 H 24 106/75 93 04/06/19 12:15 37.7 C H 112 H 16 145/77 H 94 Laboratory Results Short CBC 04/06/19 Range/Units 13:32 WBC 5.69 (4.8-10.8) K/uL Hgb 14.1 (12.0-16.0) g/dL Hct 41.5 (37-47) % Plt Count 316 (130-400) K/uL BMP 04/06/19 13:32 Sodium 139 Potassium 3.2 L Chloride 107 Carbon Dioxide 28 BUN 6 L Creatinine 0.63 Glucose 81 Calcium 8.8 Cardiac Enzymes 04/06/19 Range/Units 13:32 Troponin I < 0.015 (0-0.045) ng/ml Liver Function 04/06/19 Range/Units 13:32 Total Bilirubin 0.4 (0.2-1) mg/dl AST 19 (15-37) U/L ALT 30 (12-78) U/L Alkaline Phosphatase 109 (45-117) U/L Albumin 3.0 L (3.4-5.0) gm/dl Urine 04/06/19 Range/Units 13:44 Urine Color Dark Yellow Urine Appearance Clear (Clear) Urine pH 7.5 (4.5-7.5) Ur Specific [place] 1.014 (1.000-1.030) Urine Protein Negative (Negative) Urine Glucose (UA) Negative (Negative) Diagnostic Findings CXR: IMPRESSION: Moderate right lower and midlung airspace opacity suggestive of pneumonia. Post treatment radiographs to ensure resolution are recommended. Supervising Physician Co-Signing Physician Notes Pt was seen and examined. Agreed with Ernestine CARRILLO exam, assessment and plan. 33 y/o F with PMH s/p vaginal delivery 2 weeks ago presented to ER with cough. Pt said that she has been having a dry cough for about 1 week, then today she developed fever with temp 102F. CXR on admission showed moderate right lower and midlung airspace opacity suggestive of pneumonia. Received IV rocephin and doxy in the ER. Blood cx collected in the ER. Will continue abx with Rocephin and doxy for now. Rocephin is safe to give. Doxy for only a short course since it does secreted in breast milk. If there is any concern for abx on discharge, Cefdinir is safe to give. Continue monitor closely. MD Amanda
[2019-04-06] MEDS ORDERED: POTASSIUM CHLORIDE 20 MEQ TABCR PO STA (16:42)
[2019-04-06] MEDS ORDERED: SODIUM CHLORIDE 0.9% 1000ML 1,000 ML IV SCH (18:30)
[2019-04-06] MEDS: ACETAMINOPHEN 325 MG TAB PO PRN (20:48)
[2019-04-06] MEDS: DOXYCYCLINE HYCLATE 100 MG CAP PO SCH (21:52)
[2019-04-07] MEDS: DOXYCYCLINE HYCLATE 100 MG CAP PO SCH ×2 (05:58→18:22)
[2019-04-07 06:57] LABS: Hematocrit (blood only) 36.7 % (37-47); Hemoglobin 12.3 g/dL (12.0-16.0); Mean Corpuscular Hemoglobin 30.7 pg (25-34); Mean Corpuscular Hgb Conc 33.5 g/dL (32-36); Mean Corpuscular Volume 91.5 fL (80-100); Mean Platelet Volume 9.3 fL (7.4-10.4); Platelet Count 324 K/uL (130-400); RDW Coefficient of Variation 13.1 % (11.5-14.5); RDW Standard Deviation 43.8 fL (36.4-46.3); Red Blood Count 4.01 M/uL (4.2-5.4); White Blood Count 6.06 K/uL (4.8-10.8)
[2019-04-07 07:29] LABS: BUN Creatinine Ratio 10.2 (10-20); Calcium 8.8 mg/dl (8.5-10.1); Creatinine Clr Calc Pharmacy 140.5 ml/min; Est GFR (African American) 141.4; Potassium 3.5 mmol/L (3.5-5.1)
[2019-04-07] MEDS: PRENATAL VITAMIN 1 TAB PO SCH (08:43)
[2019-04-07 09:45] LABS: Influenza A virus by PCR Neg for Influ A (Neg); Influenza B virus by PCR Neg for Influ B (Neg)
--- NOTE | 2019-04-07 14:46 | Hospitalist Progress Note ---
Date of Service April 07, 2019 Assessment & Plan (1) Pneumonia: (1) Multifocal pneumonia: Per admitting service notes: Pt is 33 y/o F with PMH s/p vaginal delivery 03/18/19 presented to ER with c/o cough x 1 week. Reports 3 days ago fever 103F. In ER T: 37.7, P: 112, R: 16, BP: 145/77, 94% on RA. WBC: 5.6. Lactate: 1.2. Negative influenza swab -Blood cultures pending -In ER given Rocephin, doxycycline, 2L NSS -Discussed meds and med side effects and breast feeding with pt. Medications also discussed with pharmacist 04/07/2019 Patient doing better today Afebrile, Saturating well on room air, denies shortness of breath Appetite better Continue ceftriaxone plus doxycycline Plan for discharge on cefdinir and doxycycline p.o. x5 more days to complete 1 week treatment Patient will need follow-up with PCP within 1 week, repeat chest x-ray in about a month (2) Mastitis: Per admitting service notes Started Keflex on 04/03/19 for right sided mastitis. Continues to breast feed with resolution of breast erythema, tenderness and firmness -Hold keflex currently as is on Rocephin as above 04/07/2019 Patient confirms mastitis has resolved DVT Prophylaxis SCDs ordered -Patient also encouraged to ambulate frequently Case and plan of care discussed with patient and her in detail and at length All questions were answered They are understanding, agreeable, comfortable with plan of care Subjective Follow-up for pneumonia Seen with patient's at the bedside During up in bed, comfortable, very pleasant She feels improved today, less coughing and sputum, no shortness of breath, Ambulates in the room with no problems Denies chest pain, palpitations, dizziness Reports mastitis has resolved No other symptoms Review of Systems Review of Systems: All systems reviewed & are unremarkable except as noted in HPI & below Physical Exam Physical Exam: General- oriented x 3, not in distress, speaks in sentences with no effort or accessory muscle use Eyes- anicteric Neck- no JVD Lungs-positive crackles right base, no wheezing Left lung clear Heart- normal rate, regular rhythm; no murmurs Abdomen- normal bowel sounds, nondistended, soft, nontender Extremities- no pretibial edema, no calf tenderness Neuro- alert, oriented x 3; no gross focal neurologic deficits Skin- warm & dry Results & Data Vital Signs (Past 12 Hours) Vital Signs Temp Pulse Resp BP Pulse Ox 04/07/19 13:28 36.8 C 77 18 109/77 98 04/07/19 08:45 36.8 C 87 16 109/68 04/07/19 05:00 37.4 C 90 15 99/61 L 94 Laboratory Results Laboratory Results - last 24 hr 04/07/19 04/07/19 04/07/19 06:34 06:34 08:50 WBC 6.06 RBC 4.01 L Hgb 12.3 Hct 36.7 L MCV 91.5 MCH 30.7 MCHC 33.5 RDW Std Deviation 43.8 RDW Coeff of Pb 13.1 Plt Count 324 MPV 9.3 Sodium 140 Potassium 3.5 Chloride 112 H Carbon Dioxide 23 Anion Gap 5.0 BUN 6 L Creatinine 0.58 L Est Cr Clr Drug Dosing 140.5 Est GFR ( Amer) 141.4 Est GFR (Non-Af Amer) 122.0 BUN/Creatinine Ratio 10.2 Glucose 103 H Calcium 8.8 Nasal Screen MRSA (PCR) Influenza Type A (PCR) Neg for Influ A Influenza Type B (PCR) Neg for Influ B 04/07/19 04/07/19 08:50 09:30 WBC RBC Hgb Hct MCV MCH MCHC RDW Std Deviation RDW Coeff of Pb Plt Count MPV Sodium Potassium Chloride Carbon Dioxide Anion Gap BUN Creatinine Est Cr Clr Drug Dosing Est GFR ( Amer) Est GFR (Non-Af Amer) BUN/Creatinine Ratio Glucose Calcium Nasal Screen MRSA (PCR) Cancelled Negative Influenza Type A (PCR) Influenza Type B (PCR)
[2019-04-07] MEDS ORDERED: cefTRIAXone SODIUM 1,000 MG in DEXTROSE 5% 50 ML IV SCH (15:00)
[2019-04-07] MEDS: ACETAMINOPHEN 325 MG TAB PO PRN (18:20)
[2019-04-08] MEDS: DOXYCYCLINE HYCLATE 100 MG CAP PO SCH (06:05)
[2019-04-08] MEDS: PRENATAL VITAMIN 1 TAB PO SCH (08:12)
--- NOTE | 2019-04-08 09:07 | Hospitalist Progress Note ---
Date of Service April 08, 2019 Assessment & Plan (1) Multifocal pneumonia: (1) Pneumonia: Per admitting service notes: Pt is 33 y/o F with PMH s/p vaginal delivery 03/18/19 presented to ER with c/o cough x 1 week. Reports 3 days ago fever 103F. In ER T: 37.7, P: 112, R: 16, BP: 145/77, 94% on RA. WBC: 5.6. Lactate: 1.2. Negative influenza swab -Blood cultures pending -In ER given Rocephin, doxycycline, 2L NSS -Discussed meds and med side effects and breast feeding with pt. Medications also discussed with pharmacist given Ceftri + Doxy IV x 2 days improved clinically- fever lysed, saturating well on room air, no dyspnea, appetite better blood cultures: pending- please follow up Discharge plan: cefdinir 300mg BID and doxycycline 100mg BID p.o. x5 more days to complete 1 week treatment (discussed with Pharmacist and Garment Supervisor, ok with above antibiotic regimen with ) follow-up with PCP next week (2) Mastitis: Per admitting service notes Started Keflex on 04/03/19 for right sided mastitis. Continues to breast feed with resolution of breast erythema, tenderness and firmness -Hold keflex currently as is on Rocephin as above Patient confirms mastitis has resolved Case and plan of care discussed with patient and her in detail and at length All questions were answered They are understanding, agreeable, comfortable with plan of care (2) Mastitis: Started Keflex on 04/03/19 for right sided mastitis. Continues to breast feed with resolution of breast erythema, tenderness and firmness -Hold keflex currently as is on Rocephin as above DVT Prophylaxis -Low risk - Ambulate Follows with Dr Kingston for routine care Pt was seen and care coordinated with Dr Patel. See addendum Subjective ff up for pneumonia seen resting in bed, comfortable, sitting up in good spirits states she feels much better overall less cough, no sputum no fever/chills denies shortness of breath, chest pain appetite improving no other symptoms states she is better and would like to be discharged today Review of Systems Review of Systems: All systems reviewed & are unremarkable except as noted in HPI & below Physical Exam Physical Exam: General- oriented x 3, not in distress, speaks in sentences with no effort or accessory muscle use Eyes- anicteric Neck- no JVD Lungs- crackles at the right base, no wheezing clear on the left Heart- normal rate, regular rhythm; no murmurs Abdomen- normal bowel sounds, nondistended, soft, nontender Extremities- no pretibial edema, no calf tenderness Neuro- alert, oriented x 3; no gross focal neurologic deficits Skin- warm & dry Results & Data Vital Signs (Past 12 Hours) Vital Signs Temp Pulse Resp BP Pulse Ox 04/08/19 08:00 36.4 C L 78 19 98/64 L 99 04/07/19 23:10 36.5 C 77 18 99/67 L 94 Laboratory Results Laboratory Results - last 24 hr 04/07/19 04/07/19 04/07/19 08:50 08:50 09:30 Nasal Screen MRSA (PCR) Cancelled Negative Influenza Type A (PCR) Neg for Influ A Influenza Type B (PCR) Neg for Influ B
--- NOTE | 2019-04-08 09:26 | Discharge Summary ---
Date of Service April 08, 2019 Admission HPI Per Admitting Provider Pt is 33 y/o F with PMH s/p vaginal delivery 03/18/19 presented to ER with c/o cough x 1 week. Patient complains of cough, intermittently feels like is productive however, bringing up any sputum. Reports 3 days ago fever 103F. Had noted right breast erythema and firmness and was diagnosed with right breast mastitis and was started on Keflex 500 mg 3 times daily x7 days. Patient has continued to breast-feed and reports right breast redness and firmness has resolved. Cough has continued and fever has continued with fever of 102F today. States had some nasal congestion. Reports intermittent nausea. Denies V/D/C, MENDIOLA, dizziness, syncope, vision changes, neck pain, CP, SOB, orthopnea, palpitations, hemoptysis, sore throat, choking, otalgia, abdominal pain, paresthesias, weakness, extremity weakness, extremity edema, rashes, urinary symptoms. Admission Exam Per Admitting Provider General: no distress, WDWN Head: normocephalic, atraumatic Eyes: PERRL, EOM's intact, conjunctiva non-injected, anicteric ENT: normal inspection external ears, nose, mucous membranes mildly dry Neck: supple, trachea midline, non-tender Breasts: no erythema, non-tender Lungs: no respiratory distress, right lower lung with rales CV: RRR, no murmur, no pretibial edema Abd: normal BS, soft, non-tender Ext: no cyanosis, no calf tenderness, no erythema Neuro: A&O x 3, no focal deficits noted, normal affect Skin: warm, dry Principal Diagnosis Pneumonia Discharge Exam General- oriented x 3, not in distress, speaks in sentences with no effort or accessory muscle use Eyes- anicteric Neck- no JVD Lungs- crackles at the right base, no wheezing clear on the left Heart- normal rate, regular rhythm; no murmurs Abdomen- normal bowel sounds, nondistended, soft, nontender Extremities- no pretibial edema, no calf tenderness Neuro- alert, oriented x 3; no gross focal neurologic deficits Skin- warm & dry Discharge Data Allergies Allergy/AdvReac Type Severity Reaction Status Date / Time prednisone Allergy Intermediate mental Verified 04/06/19 13:12 issues fexofenadine [From Ginger-D] Allergy Mild Rash Verified 04/06/19 13:12 pseudoephedrine Allergy Mild Rash Verified 04/06/19 13:12 [From Ginger-D] Sulfa (Sulfonamide Allergy Mild RASH Verified 04/06/19 13:12 Antibiotics) Consultations 04/06/19 15:56 ED Decision to Admit Stat Hospital Course (1) Multifocal pneumonia: (1) Pneumonia: Per admitting service notes: Pt is 33 y/o F with PMH s/p vaginal delivery 03/18/19 presented to ER with c/o cough x 1 week. Reports 3 days ago fever 103F. In ER T: 37.7, P: 112, R: 16, BP: 145/77, 94% on RA. WBC: 5.6. Lactate: 1.2. Negative influenza swab -- CXR: IMPRESSION: Moderate right lower and midlung airspace opacity suggestive of pneumonia. Post treatment radiographs to ensure resolution are recommended. -Blood cultures pending -In ER given Rocephin, doxycycline, 2L NSS -Discussed meds and med side effects and breast feeding with pt. Medications also discussed with pharmacist given Ceftri + Doxy IV x 2 days improved clinically- fever lysed, saturating well on room air, no dyspnea, appetite better blood cultures: negative after 48 hours- preliminary, follow up final results Discharge plan: cefdinir 300mg BID and doxycycline 100mg BID p.o. x5 more days to complete 1 week treatment (discussed with Pharmacist and Social Contact Worker, ok with above antibiotic regimen with ) follow-up with PCP next week (2) Mastitis: Per admitting service notes Started Keflex on 04/03/19 for right sided mastitis. Continues to breast feed with resolution of breast erythema, tenderness and firmness -Hold keflex currently as is on Rocephin as above - Patient confirms mastitis has resolved Case and plan of care discussed with patient and her in detail and at length All questions were answered They are understanding, agreeable, comfortable with plan of care (2) Mastitis: management per above D/c home ff up with PCP next week, clinic to call patient with appointment Total Time Total Time Spent Total Time Spent (In Minutes): 45 minutes Discharge Plan Discharge Items Patient Disposition: Home - Self-Care Reason For Visit: PNEUMONIA Discharge Diagnosis: PNEUMONIA Condition on Discharge: Good Activity: As commented below Activity Comment: RESUME ACTIVITY GRADUALLY TOLERATED Lifting: Wait until after follow-up appointment Exercise/Sports: Wait until after follow-up appointment Driving/Machine Use: NO DRIVING UNTIL EVALUATED BY PRIMARY CARE PHYSICIAN Non-emergency contact: Primary Care Provider Call non-emergency contact if: you have any medication questions, your symptoms worsen and you have a fever Follow-up/Referrals: Michelle Robins, [Primary Care Provider] - Diet: Regular Addtl Attending Provider Instructions: PLEASE REVIEW YOUR NEW MEDICATION LIST AND FOLLOW INSTRUCTIONS CAREFULLY. MONITOR THE BABY FOR ORAL THRUSH OR DIARRHEA. IF PRESENT, CALL THE PRODUCT DEVELOPMENT ENGINEER IMMEDIATELY. ALWAYS DRINK PLENTY OF WATER. CALL YOUR PRIMARY CARE PHYSICIAN OR RETURN TO THE ER IMMEDIATELY IF WITH WORSENING OF SYMPTOMS. FOLLOW UP WITH DR. ROBINS NEXT WEEK. THE CLINIC WILL BE CALLING YOU FOR THE APPOINTMENT. Pending Studies at Discharge: No Stand-Alone Forms: My [facility], Smoking Cessation Medications and DC Order Prescriptions: New doxycycline hyclate 100 mg capsule 100 mg PO Q12H Qty: 9 RF: 0 cefdinir 300 mg capsule 300 mg PO Q12H 5 Days Qty: 10 RF: 0 Continued Vitamin 27 mg iron- 0.8 mg Tablet 1 tab PO DAILY RF: 0 acetaminophen 500 mg Tablet 1,000 mg PO Q6H PRN (Reason: Pain/Fever) RF: 0 Discontinued cephalexin 500 mg capsule 500 mg PO TID RF: 0 Discharge Orders: Discharge Order (Routine); Ordered 04/08/19 Ordered By: Vivek Walsh/Other Patient Handouts: Pneumonia, Infecs Common Prevent Admission Data Admit Date/Time: 04/06/19 16:29 Attending Provider: Vivek Mack Admit Provider: Annie Patel Primary Care Provider: Michelle Robins Other Providers: Efrain Mtz ; Annie Patel Other Interventions: Discharge Summary Assessment (RN) Last Done: 04/08/19 09:45 DC Date/Time DO NOT enter until pt leaves facility: 04/08/19 10:55
== END 2019-04-08 10:55 | disposition home or self-care (01) | DRG 195 ==
LOC: ED 12:12 → 4N 16:29 → SUATTDRO 16:29 → 4N 17:22

== ENCOUNTER 2022-10-07 01:09 | Inpatient (IN) ==
[2022-10-07] MEDS ORDERED: LIDOCAINE 1% LOCAL 20 ML VIAL INFIL PRN (01:18)
[2022-10-07] MEDS ORDERED: LACTATED RINGER'S 1,000 ML IV PRN (01:18)
[2022-10-07] MEDS ORDERED: OXYTOCIN 30 UNITS/500 ML BAG IV PRN ×2 (01:18→02:23)
--- NOTE | 2022-10-07 01:38 | History & Physical Report ---
Date of Service October 07, 2022 Assessment & Plan Admission and Anticipated Discharge Date Admission Date: October 07, 2022 History of Present Illness Chief Complaint: labor Primary Care Provider: Michelle Kingston DO 37 F P2002 at 41.1 admitted in active labor. Allergies Allergy/AdvReac Type Severity Reaction Status Date / Time prednisone Allergy Intermediate mental Verified 10/07/22 01:37 issues fexofenadine [From Ginger-D] Allergy Mild Rash Verified 10/07/22 01:37 pseudoephedrine Allergy Mild Rash Verified 10/07/22 01:37 [From Ginger-D] Sulfa (Sulfonamide Allergy Mild RASH Verified 10/07/22 01:37 Antibiotics) Home Medications Medication Instructions Recorded Confirmed Type vitamins-iron fumarate 27 1 tab PO DAILY 03/18/19 10/05/22 History mg iron-folic acid 0.8 mg tablet ( Vitamin) Patient History Medical History History of thyroid nodule Surgical History S/P partial thyroidectomy Family History Other Diabetes Hypertension Social History Smoking Status: Never smoker Second Hand Exposure: No; Do You Dip or Chew Tobacco: No; Hx Alcohol Use: No Hx Substance Use: No Preferred Language: [place] Communication Ability: Effective Visual Impairment: No Limitations Hearing Ability: Normal Business Services Administrator Required: No Beliefs That Will Affect Care: None marital status: marital status details: Abraham Cevallos Current Living Situation: Spouse and Family Current Living Situation Comment: & 7 yr old daughter, 3 yr old son 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 Feels Safe at Home: Yes Diet: regular Gender Identity: Female Assistive Devices: None 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 History neg Review of Systems All systems reviewed & are unremarkable except as noted in HPI & below Physical Exam Constitutional: WD/WN, vitals as above Respiratory: normal respiratory effort, lungs clear to auscultation Cardiovascular: RRR, no murmur, no edema Musculoskeletal: Extremities: extremities normal to inspection Skin: no rashes, warm and dry Neurologic: patellar DTR's 2+ bilat, sensation intact Psychiatric: A+Ox3, euthymic affect Genitourinary: Manual OB Exam: + cervical dilation 9 cm, + cervical effacement 100% and + station -1 OB Exam Monitor Tracing: + external FHT monitor used, + external uterine monitor used, + category I and + normal FHT variability Results & Data Vital Signs (Past 12 Hours) Vital Signs Pulse BP 10/07/22 01:25 91 H 166/91 H
[2022-10-07] MEDS ORDERED: BUTORPHANOL TARTRATE 1 MG/ML VIAL ONE (02:06)
[2022-10-07 02:09] LABS: Hematocrit (blood only) 36.4 % (37.0-47.0); Hemoglobin 12.3 g/dl (12.0-16.0); Mean Corpuscular Hemoglobin 30.3 pg (25.0-34.0); Mean Corpuscular Hgb Conc 33.8 g/dL (32.0-36.0); Mean Corpuscular Volume 89.7 fL (80.0-100.0); Mean Platelet Volume 9.9 fL (9.4-12.4); Platelet Count 302 K/uL (130-400); RDW Coefficient of Variation 12.8 % (11.5-14.5); RDW Standard Deviation 42.2 fL (36.4-46.3); Red Blood Count 4.06 M/uL (4.20-5.40); White Blood Count 8.96 K/ul (4.8-10.8)
[2022-10-07] MEDS ORDERED: DIPHTHERIA/TETANUS/PERTUSSIS Vaccine (Tdap, Age 7+yrs) 0.5mL SYR/VL IM ONE (02:23)
[2022-10-07] MEDS ORDERED: bisacodyL 10 MG SUPP PR PRN (02:23)
[2022-10-07] MEDS ORDERED: HYDROCORTISONE ACETATE 25 MG SUPP PR PRN (02:23)
[2022-10-07] MEDS ORDERED: ACETAMINOPHEN 325 MG TAB PO PRN (02:23)
[2022-10-07] MEDS ORDERED: BUTORPHANOL TARTRATE 1 MG/ML VIAL IV STA (02:23)
[2022-10-07] MEDS ORDERED: BENZOCAINE 20% AER SPR 82.5 GM CAN EXT PRN (02:23)
--- NOTE | 2022-10-07 02:27 | Delivery Summary ---
Vaginal Delivery Summary Date of Service October 07, 2022 Vaginal Delivery Summary Delivery Note live female ANH over intact perineum with delayed cord clamping and Apgars 7/8 weight pending. Cord blood obtained followed by spontaneous delivery of intact placenta. No tears. EBL 100 ml. Final sponge and instrument count are correct. Mom and baby stable.
[2022-10-07] MEDS: IBUPROFEN 600 MG TAB PO PRN ×4 (08:20→21:22)
[2022-10-07] MEDS: FERROUS SULFATE 325 MG TAB PO SCH (08:20)
[2022-10-07] MEDS: DOCUSATE SODIUM 100 MG CAP PO SCH ×2 (08:21→21:22)
[2022-10-07] MEDS: PRENATAL VITAMIN 1 TAB PO SCH (08:21)
[2022-10-07] MEDS ORDERED: NON-FORMULARY MEDICATION (Prenatal Vit-Iron Fum-Folic Ac [Prenatal Vitamin] 27 mg iron- 0. PO SCH (09:00)
[2022-10-08 06:55] LABS: Hematocrit (blood only) 34.4 % (37.0-47.0); Hemoglobin 11.6 g/dl (12.0-16.0); Mean Corpuscular Hemoglobin 29.9 pg (25.0-34.0); Mean Corpuscular Hgb Conc 33.7 g/dL (32.0-36.0); Mean Corpuscular Volume 88.7 fL (80.0-100.0); Mean Platelet Volume 9.9 fL (9.4-12.4); Platelet Count 281 K/uL (130-400); RDW Coefficient of Variation 12.9 % (11.5-14.5); RDW Standard Deviation 41.7 fL (36.4-46.3); Red Blood Count 3.88 M/uL (4.20-5.40); White Blood Count 8.24 K/ul (4.8-10.8)
--- NOTE | 2022-10-08 08:35 | Obstetrical Progress Note ---
Date of Service October 08, 2022 Assessment & Plan (1) Normal course: Home today if baby is discharged with instructions Subjective Ambulation: ambulating normally Voiding: no voiding problems Passing Gas:: Yes Diet Tolerance:: regular diet Feeding Type:: breast feeding Current Pain Level(1-10): 0 Doing well, wants to go home today if baby is discharged Physical Exam Constitutional WD/WN, vitals as above Respiratory normal respiratory effort, lungs clear to auscultation Cardiovascular RRR, no murmur, no edema Gastrointestinal (Abdomen) normal bowel sounds, soft, nontender, no hepatosplenomegaly fundus below U Results & Data Vital Signs (Past 12 Hours) Vital Signs Temp Pulse Resp BP Pulse Ox O2 Del Method 10/07/22 23:05 36.6 C 71 18 113/73 96 Room Air Laboratory Results Laboratory Results WBC 8.24 K/ul (4.8-10.8) 10/08/22 06:00 RBC 3.88 M/uL (4.20-5.40) L 10/08/22 06:00 Hgb 11.6 g/dl (12.0-16.0) L 10/08/22 06:00 Hct 34.4 % (37.0-47.0) L 10/08/22 06:00 MCV 88.7 fL (80.0-100.0) 10/08/22 06:00 MCH 29.9 pg (25.0-34.0) 10/08/22 06:00 MCHC 33.7 g/dL (32.0-36.0) 10/08/22 06:00 RDW Std Deviation 41.7 fL (36.4-46.3) 10/08/22 06:00 RDW Coeff of Pb 12.9 % (11.5-14.5) 10/08/22 06:00 Plt Count 281 K/uL (130-400) 10/08/22 06:00 MPV 9.9 fL (9.4-12.4) 10/08/22 06:00 SARS-CoV-2, RNA, NAAT NEGATIVE (NEGATIVE) 10/07/22 01:30
[2022-10-08] MEDS: DOCUSATE SODIUM 100 MG CAP PO SCH (08:44)
[2022-10-08] MEDS: PRENATAL VITAMIN 1 TAB PO SCH (08:44)
[2022-10-08] MEDS: FERROUS SULFATE 325 MG TAB PO SCH (08:44)
[2022-10-08] MEDS ORDERED: bisacodyL 5 MG TABEC PO SCH (20:00)
== END 2022-10-08 12:55 | disposition home or self-care (01) | DRG 807 ==
LOC: 4S1 01:09 → 4E2 05:01